=== PATIENT | male | born 1990 | race Two or more races ===

== ENCOUNTER 2021-04-28 14:20 | Emergency (ER) | payer OTHER ==
[~2021-04-28] VITALS: Ht 188 cm; Wt 111.1 kg
[2021-04-28 14:30] VITALS: BP 150/103
[2021-04-28] MEDS ORDERED: AMOX-277 PO (14:41)
[2021-04-28] MEDS ORDERED: IBUP800T27 PO (14:41)
== END 2021-04-28 14:49 | disposition home or self-care (01) ==
LOC: ER 14:20
DX: H66.92 Otitis media, unspecified, left ear (principal); E11.9 Type 2 diabetes mellitus without complications; I10 Essential (primary) hypertension